=== PATIENT | female | born 1970 | race Caucasian/White ===

== ENCOUNTER 2023-08-16 12:45 | Emergency (ER) | payer BC, SELFPAY ==
[2023-08-16 12:53] VITALS: BP 155/90
[2023-08-16 13:08] LABS: % Basophils 0.9 % (0-2); % Immature Granulocytes 0.6 % (0-0.5); % Monocytes 6.2 % (1.7-9.3); % Neutrophils 78.3 % (42.2-75.2); Absolute Basophils 0.1 10^3/uL (0-0.2); Absolute Lymphocytes 0.9 10^3/uL (1.2-3.4); Absolute Monocytes 0.4 10^3/uL (0.1-0.6); Absolute Neutrophils 5.1 10^3/uL (1.4-6.5); Hematocrit 43.1 % (37.0-47.0); Mean Corp Hgb Conc. 34.8 g/dL (33.0-37.0); Mean Corpuscular Hgb 30.1 pg (27.0-31.0); Mean Corpuscular Volume 86.4 fL (81.0-99.0); Nucleated Red Blood Cells % 0 %; Platelet Count 231 10^3/uL (130-400); Red Blood Cell Count 4.99 10^6/uL (4.20-5.40); Red Cell Dist. Width 12.4 % (11.5-14.5); White Blood Cell Count 6.6 10^3/uL (4.8-10.8)
[2023-08-16 13:21] LABS: ALT (SGPT) 17 U/L (0-35); AST (SGOT) 25 U/L (14-36); Albumin 4.7 g/dl (3.5-5.0); Alkaline Phosphatase 98 U/L (38-126); Blood Urea Nitrogen 15 mg/dl (7-17); Calcium 10.4 mg/dl (8.4-10.2); Carbon Dioxide 27 mmol/L (22-30); Chloride 103 mmol/L (98-107); Glucose 107 mg/dl (70-99); Potassium 4.3 mmol/L (3.5-5.1); Sodium 141 mmol/L (135-145); Total Bilirubin 1.8 mg/dl (0.2-1.3); Total Protein 7.3 g/dl (6.3-8.2); eGFR > 60.00
[2023-08-16] MEDS: NSS 1000 IV (16:25)
[2023-08-16] MEDS: ZOFRAN 4 MG IV (16:26)
--- NOTE | 2023-08-16 17:11 | ED.GENMED ---
History of Present Illness
General
Chief Complaint: Dizziness
Time Seen by Provider: 08/16/23 16:11
Travel History
Have you had any contact with someone who has COVID-19?: No
Do you have any symptoms of coronavirus? Fever > 100 degrees, chills, cough, shortness of breath, sore throat, loss of taste or smell, muscle aches, or headache?: No
History of Present Illness
History of Present Illness:
52-year-old female presents to the emergency department for evaluation of vertigo and vomiting that began yesterday. Vertigo began when she got out of bed and she developed vomiting as a result. States that since that time she has not tolerated
any p.o. food or fluids. She also notes diarrhea today. The vertigo has improved at this point. No fevers or night sweats. No ill contacts at home
Review of Systems
Review of Systems
Allergies reviewed?: Yes
All Other Systems: ROS reviewed and negative except as documented in HPI and ROS
Phy Exam
Physical Exam
Physical Exam:
GEN: Well appearing, NAD, WDWN
HEENT: Oral mucosa moist, no scleral icterus, no nasal congestion
Cardiac: Regular rate
Lung: No respiratory distress, no tachypnea
Abdomen: Soft, nontender, nondistended
MSK: No gross deformity or injuries
Skin: Good color, no pallor or jaundice, no rashes
Neuro: AO x3; CN II-XII grossly intact. BUE strength 5/5 in all perdue, sensation intact and symmetric. BLE strength 5/5 in all perdue, sensation intact and symmetric
Psych: Calm, cooperative
Course
Orders/Labs/Results
Orders:
Orders
08/16/23 12:59
Complete Blood Count/With Diff Urgent
Comprehensive Metabolic Panel Urgent
08/16/23 16:16
0.9% Sodium Chloride 1000 ml [Nss] 1,000 ml IV BOLUS
Ondansetron Injectable [Zofran] 4 mg IV NOW STA
08/16/23 17:58
Ketorolac [Toradol] 15 mg IV NOW STA
Metoclopramide [Reglan] 10 mg IV NOW STA
Abnormal Lab Results
08/16/23
12:59
MPV 12.0 H fL
(7.4-10.4)
Absolute Lymphs (auto) 0.9 L 10^3/uL
(1.2-3.4)
Immature Gran % 0.6 H %
(0-0.5)
Neutrophils % 78.3 H %
(42.2-75.2)
Lymphocytes % 14.0 L %
(20.5-51.1)
Glucose 107 H mg/dl
(70-99)
Calcium 10.4 H mg/dl
(8.4-10.2)
Total Bilirubin 1.8 H mg/dl
(0.2-1.3)
08/16/23 12:59
08/16/23 12:59
Vital Signs
Initial and Last Documented VS:
Initial Vital Signs
Temp Pulse Resp BP Pulse Ox
98.2 F 65 16 155/90 98
08/16/23 12:53 08/16/23 12:53 08/16/23 12:53 08/16/23 12:53 08/16/23 12:53
Last Documented Vital Signs
Temp Pulse Resp BP Pulse Ox
98.2 F 53 16 126/64 97
08/16/23 12:53 08/16/23 18:35 08/16/23 18:35 08/16/23 18:35 08/16/23 18:35
MDM/Problems Addressed
MDM/Problems Addressed:
Patient's neurologic exam is unremarkable and her vertigo symptoms are resolved, no obvious nystagmus on exam. Her symptoms are most likely due to self-limited viral syndrome, treated supportively with IV fluids and anti my in the emergency
department with good improvement of symptoms. Labs are reassuring. No clinical concern for central etiology to vertigo, no indication for abdominal imaging given reassuring abdominal exam
*Critical Care Note
Total Time (30-74mins, 75-104mins- exclusive of procedures): Not Applicable
ED Attending Note
-
Portions of this chart may have been created with voice recognition software.� Occasional wrong word or��sound alike� substitutions may have occurred due to the inherent limitations of voice recognition software.
Discharge Plan
Departure
Patient Disposition: Home (Routine Discharge)
Date of Disposition: 08/16/23
Time of Disposition: 18:35
Patient with high blood pressure during this ER visit?: No
Discharge Problem:
Vertigo, Migraine
Instructions: Vertigo (a Type of Dizziness) (DC)
Prescriptions:
New
ondansetron 4 mg tablet,disintegrating
4 mg PO TIDPRN PRN (Reason: nausea/vomiting) Qty: 10 0RF
Referrals:
Amanda Aly CRNP [Family Provider] -
Interventions
Interventions:
*Risk Screen - Suicide Last Done: 08/16/23 18:39
*General Assessment Last Done: 08/16/23 18:39
*Neglect/Abuse Screening Last Done: 08/16/23 18:39
ED- Fall Risk Assessment Last Done: 08/16/23 18:39
*ED COVID-19 Vaccine History Last Done: 08/16/23 12:53
*Nursing Disposition Last Done: 08/16/23 18:39
ED- Neurological Assessment Last Done: 08/16/23 16:16
Discharge Date and Time
Discharge Date/Time: 08/16/23 18:39
Print Language: [id number]
[2023-08-16] MEDS: REGLAN 10 MG IV (18:02)
[2023-08-16] MEDS: TORADOL 15 MG IV (18:02)
[2023-08-16 18:35] VITALS: BP 126/64
== END 2023-08-16 18:39 | disposition home or self-care (01) ==
LOC: EMR 12:45
PROVIDERS: Emergency Medicine; EMERGENCY PHYSICIAN Emergency Medicine; FAMILY PHYSICIAN Nurse Practitioner Adult Health
DX: G43.909 Migraine, unspecified, not intractable, without status migrainosus (principal); R42 Dizziness and giddiness
CPT/HCPCS: 99284; 96374; 96375 ×2; 96361; 80053; 85025

== ENCOUNTER → 2023-10-01 09:57 | Outpatient (REF) | payer BC, SELFPAY | LOC: MRI 3T 09:57 | PROVIDERS: ATTENDING PHYSICIAN Nurse Practitioner Adult Health | DX: R42 Dizziness and giddiness (principal); H53.8 Other visual disturbances; R51.9 Headache, unspecified | CPT/HCPCS: 70553; A9575 ==